=== PATIENT | male | born 2000 | race Caucasian/White ===

== ENCOUNTER 2023-11-24 12:06 | Emergency (ER) | payer BC, SELFPAY ==
[2023-11-24 12:09] VITALS: BP 142/93
[2023-11-24] MEDS: MOTRIN 600 MG PO (13:38)
[2023-11-24] MEDS: PERCOCET 5/325 1 TABLET PO (13:39)
--- NOTE | 2023-11-24 13:46 | ED.MUSCINJ ---
HPI-Injury
General
Chief Complaint: Musculo-Skeletal Complaint
Source: patient
Exam Limitations: none
Time Seen by Provider: 11/24/23 13:31
Nursing documentation reviewed up to this point in time: agreed with
History of Present Illness-Injury
Is this injury a work related problem?: Yes
Is pt an associate of [facility]?: No
Initial Injury comments:
23-year male left thumb pain struck with a hammer at work, has a small abrasion and pain occurred just prior to arrival he is right-hand dominant
Past History
Past History
ED Past Medical History: Other (aspergers, morbid obesity)
ED Past Surgical History: None
Social History
Tobacco: Non-smoker
Living: with family
Review of Systems
Review of Systems
All Other Systems: Not applicable
Constitutional: Denies fever or fatigue
EENT: Reports no symptoms
Respiratory: Reports no symptoms
Cardiac: Reports no symptoms
ABD/GI: Reports no symptoms
Musculoskeletal: Reports joint pain
Phy Exam
Physical Exam
Physical Exam:
Physical Exam
General: no apparent distress, not acutely ill
Lungs: no acute respiratory distress.
Neuro: alert and oriented. no focal neurological deficits
Skin: no rash
Psychiatric: well kept. interactive and cooperative
Extremities: Tender over the left thumb but no subungual hematoma, no obvious nailbed injury, small distal linear abrasion
Injury Course
Orders/Labs/Results
Orders:
Orders
11/24/23 12:44
Thumb/Finger(s) 2 View Lt [CR Finger(s)/thumb Min 2 Vw Lt] Urgent
Comment:
Reason For Exam: pain, injury
Indicate Which Finger:: Thumb
11/24/23 13:36
Wound Dressing- Treatment ONCE
Location of Wound: thumb
Ibuprofen [Motrin] 600 mg PO NOW STA
Oxycodone/Acetaminophen [Percocet 5/325] 1 tablet PO NOW STA
11/24/23 13:50
Tetanus/Diphth/Acelpertussis [Adacel] 0.5 ml IM .ONCE ONE
MDM/Problems Addressed
Differential Diagnosis Includes:
fx lac hematoma
Update Note
Update Note:
Will check x-ray provide wound care update tetanus
X-ray noted, small abrasion which is dirty will provide local wound care started on some empiric antibiotics
ED Attending Note
-
Portions of this chart may have been created with voice recognition software.� Occasional wrong word or��sound alike� substitutions may have occurred due to the inherent limitations of voice recognition software.
Discharge Plan
Departure
Patient Disposition: Home (Routine Discharge)
Date of Disposition: 11/24/23
Time of Disposition: 14:02
Patient with high blood pressure during this ER visit?: No
Condition: Good
Discharge Problem:
Contusion
Instructions: Ibuprofen, Using Cold for Pain, Splint Care, Contusion
Prescriptions:
New
ibuprofen 600 mg tablet
600 mg PO Q8H PRN (Reason: Pain) Qty: 20 0RF
doxycycline hyclate 100 mg capsule
100 mg PO BID Qty: 10 0RF
No Action
fluoxetine [Prozac] 40 MG capsule
40 mg PO DAILY
metformin 500 MG tablet
500 mg PO BID@0800,1700 Qty: 60 0RF
albuterol sulfate 18 GM HFA aerosol inhaler
1 puff IH TIDPRN PRN (Reason: Shortness breath) Qty: 1 0RF
(DME) blood-glucose meter [[employer] Verio Meter] 1 EACH misc
1 ea MC DIRECTED Qty: 1 0RF
(DME) blood sugar diagnostic [[employer] Verio test strips] 1 EACH strip
1 ea MC BID Qty: 100 2RF
Referrals:
Stephanie Casillas MD [Family Provider] - Next open appointment
Interventions
Interventions:
*Risk Screen - Suicide Last Done: 11/24/23 12:09
*General Assessment Last Done: 11/24/23 12:09
*Neglect/Abuse Screening Last Done: 11/24/23 12:09
Discharge Date and Time
Print Language: BOLIVIAN
== END 2023-11-24 14:35 | disposition home or self-care (01) ==
LOC: EMR 12:06
PROVIDERS: EMERGENCY PHYSICIAN Emergency Medicine; FAMILY PHYSICIAN Student in an Organized Health Care Education/Training Program
DX: S60.012A Contusion of left thumb without damage to nail, initial encounter (principal); S60.312A Abrasion of left thumb, initial encounter; W22.8XXA Striking against or struck by other objects, initial encounter; Y93.89 Activity, other specified; Y92.89 Other specified places as the place of occurrence of the external cause; Y99.0 Civilian activity done for income or pay; F84.5 Asperger's syndrome; F32.A Depression, unspecified; E66.01 Morbid (severe) obesity due to excess calories
CPT/HCPCS: 99283; 29130; 73140

== ENCOUNTER → 2023-12-07 09:08 | Outpatient (REF) | payer BC, SELFPAY ==
[2023-12-07 09:51] LABS: % Basophils 0.3 % (0-2); % Eosinophils 2.3 % (0-6); % Immature Granulocytes 0.5 % (0-0.5); % Lymphocytes 24.5 % (20.5-51.1); % Neutrophils 65.4 % (42.2-75.2); Absolute Eosinophils 0.1 10^3/uL (0-0.7); Absolute Lymphocytes 1.5 10^3/uL (1.2-3.4); Absolute Monocytes 0.4 10^3/uL (0.1-0.6); Hematocrit 42.8 % (39.0-52.0); Mean Corpuscular Hgb 28.4 pg (27.0-31.0); Mean Corpuscular Volume 80.9 fL (80.0-94.0); Mean Platelet Volume 10.2 fL (7.4-10.4); Nucleated Red Blood Cells % 0 % (-); Platelet Count 214 10^3/uL (130-400); Red Blood Cell Count 5.29 10^6/uL (4.70-6.10); Red Cell Dist. Width 12.8 % (11.5-14.5)
[2023-12-07 11:11] LABS: Blood Urea Nitrogen 13 mg/dl (9-20); Calcium 9.3 mg/dl (8.4-10.2); Carbon Dioxide 25 mmol/L (22-30); Chloride 104 mmol/L (98-107); Glucose 112 mg/dl (70-99); HDL Cholesterol 32 mg/dl; LDL Cholesterol, Calculated 122 mg/dl; Potassium 4.3 mmol/L (3.5-5.1); Sodium 141 mmol/L (135-145); Total Cholesterol 188 mg/dl (50-199); Triglyceride 172 mg/dl (10-149); Very Low Density Lipoprotein 34 mg/dl (0-30); eGFR > 60.00
[2023-12-07 11:50] LABS: HIV Combo Negative (Negative)
[2023-12-08 11:12] LABS: Syphilis/T. pallidum Ab Reflex Negative (Negative)
== END ==
LOC: REG 09:08
PROVIDERS: ATTENDING PHYSICIAN Internal Medicine
DX: Z20.2 Contact with and (suspected) exposure to infections with a predominantly sexual mode of transmission (principal); M54.50 Low back pain, unspecified; F41.9 Anxiety disorder, unspecified; E66.01 Morbid (severe) obesity due to excess calories
CPT/HCPCS: 36415; 80048; 80061; 85025; 86780; 87389; 87491; 87591